=== PATIENT | male | born 1960 | race Caucasian/White ===

== ENCOUNTER → 2016-07-17 | Outpatient (CLI) | payer OTHER ==
[~2016-07-17] MED LIST: ADVIL200 MG PO; ALEVE220 MG PO; COLACE100 MG PO; HYDROCODON-ACE1 EAC4 PO; XARELTO15 MG PO; XARELTO20 MG PO
[2016-07-17 09:03] LABS: BASOPHIL # 0.1 K/uL (0.0-0.2); BASOPHIL % 0.9 %; EOSINOPHIL # 0.2 K/uL (0.0-0.5); EOSINOPHIL % 2.6 %; HEMATOCRIT 45.6 % (37.0-53.0); HEMOGLOBIN 15.6 g/dL (12.0-17.0); IMMATURE GRANULOCYTE % 0.3 %; LYMPHOCYTE # 1.5 K/uL (0.8-4.0); LYMPHOCYTE % 22.4 %; MCH 28.3 pg (27.0-34.0); MCHC 34.2 gm/dL (32.0-36.5); MCV 82.6 fl (83.0-98.0); MONOCYTE # 0.8 K/uL (0.0-1.0); MONOCYTE % 11.6 %; MPV 11.3 fl (9.4-12.4); NEUTROPHIL % 62.2 %; NRBC % 0 /100WBC (0-0.00); PLATELET COUNT 168 K/uL (150-450); RBC 5.52 M/uL (4.00-6.00); RDW-CV 12.8 % (11.9-14.6); WBC 6.5 K/uL (4.0-11.0)
[2016-07-17 09:15] LABS: ALBUMIN 3.7 gm/dL (3.5-5.0); ALK PHOS 81 IU/L (33-138); ALT 92 IU/L (12-78); ANION GAP 11.3 (10.0-19.0); AST 33 IU/L (10-40); BLOOD UREA NITROGEN 14 mg/dL (6-24); CALCIUM 8.6 mg/dL (8.5-10.5); CHLORIDE 109 mMol/L (96-110); CO2 25 mMol/L (22-32); CREATININE 0.8 mg/dL (0.6-1.3); ESTIMATED GFR (MDRD EQUATION) > 60; POTASSIUM 4.3 mMol/L (3.7-5.1); SODIUM 141 mMol/L (135-145); TOTAL BILIRUBIN 0.4 mg/dL (0.0-1.5); TOTAL PROTEIN 6.9 g/dL (6.0-8.4)
== END ==
LOC: LNHI 08:58
PROVIDERS: Internal Medicine Interventional Cardiology
DX: I82.402 Acute embolism and thrombosis of unspecified deep veins of left lower extremity (principal)

== ENCOUNTER → 2016-08-20 | Outpatient (CLI) | payer OTHER ==
--- NOTE | ~2016-08-20 | ENPV ---
Vascular Lower Extremities DVT Study Procedure Demographics Patient Name KYLE DOMINGUEZ Date of Study 08/20/2016 Patient Number [id number] Gender Male Date of 1960 Age 56 Visit Number [id number] Height Accession Number [id number] Weight Room Number BSA BMI Referring Ilia Fragoso MD Interpreting Ilia Fragoso MD Physician Physician Physician Ordering Physician David MARADIAGA Detective Sergeant [employer] Nga Hay BS, RT Conclusions Summary No evidence of deep vein thrombosis or superficial thrombophlebitis in the right lower extremity . Enlarged lymph nodes in right inguinal canal largest 2.7cm. Procedure Type of Study: Veins:Lower Extremities DVT Study, Lower Extremity Right. Indications for Study:Pain in Limb. Additional Indications:Right Lower extremity pain at knee Patient Status:Routine. Study Location:[facility]. Technical Quality:Adequate visualization. - Preliminary reported to:Facundo MARADIAGA. Velocities are measured in cm/s ; Diameters are measured in cm Right Lower Extremities DVT Study Measurements Right 2D and Doppler Measurements + + + + +------+------+ + !Location !Visualized!Compressibility!Thrombosis!Signal!Reflux!Reflux ! ! ! ! ! ! ! !(sec) ! + + + + +------+------+ + !GSV Thigh !Yes !Yes !None !Phasic!No ! ! + + + + +------+------+ + !Common !Yes !Yes !None !Phasic!No ! ! !Femoral ! ! ! ! ! ! ! + + + + +------+------+ + !Prox !Yes !Yes !None !Phasic!No ! ! !Femoral ! ! ! ! ! ! ! + + + + +------+------+ + !Mid Femoral!Yes !Yes !None !Phasic!No ! ! + + + + +------+------+ + !Dist !Yes !Yes !None !Phasic!No ! ! !Femoral ! ! ! ! ! ! ! + + + + +------+------+ + !Popliteal !Yes !Yes !None !Phasic!No ! ! + + + + +------+------+ + !Gastroc !Yes !Yes !None !Phasic!No ! ! + + + + +------+------+ + !PTV !Yes !Yes !None !Phasic!No ! ! + + + + +------+------+ + !Peroneal !Yes !Yes !None !Phasic!No ! ! + + + + +------+------+ + Left Lower Extremities DVT Study Measurements Left 2D and Doppler Measurements + + + + +------+------+ + !Location !Visualized!Compressibility!Thrombosis!Signal!Reflux!Reflux ! ! ! ! ! ! ! !(sec) ! + + + + +------+------+ + !Common !Yes !Yes !None !Phasic! ! ! !Femoral ! ! ! ! ! ! ! + + + + +------+------+ + !Prox !Yes !Yes !None !Phasic! ! ! !Femoral ! ! ! ! ! ! ! + + + + +------+------+ + Signature dtt: GISSEL GRAY: 08/20/16 1234 Physician Self Edit
== END | disposition disaster alternative care site (69) ==
LOC: GCAR 12:06
DX: Z03.89 Encounter for observation for other suspected diseases and conditions ruled out (principal); R59.9 Enlarged lymph nodes, unspecified